=== PATIENT | female | born 1940 | race Caucasian/White ===

== ENCOUNTER 2020-01-02 00:56 | Emergency (ER) | payer MEDICARE ==
[2020-01-02 03:39] VITALS: BP 152/79
== END 2020-01-02 03:40 | disposition left against medical advice (07) ==
LOC: ED 00:56
DX: Z53.21 Procedure and treatment not carried out due to patient leaving prior to being seen by health care provider (principal); I10 Essential (primary) hypertension; R51 Headache
CPT/HCPCS: 99282

== ENCOUNTER 2020-01-07 14:58 | Emergency (ER) | payer MEDICARE ==
[2020-01-07 15:23] VITALS: BP 150/84
--- NOTE | 2020-01-07 15:58 | UC ---
Skin Complaint HPI - HPI Summary HPI Summary: patient has had months long history intermittent erythemic pruritic rash. 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 has been using claritin with little relief, also has tried steroid cream itch is interfering with sleep - History of Current Complaint Chief Complaint: UCRash Time Seen by Provider: 01/07/20 15:43 Stated Complaint: RASH Hx Obtained From: Patient Onset/Duration: Gradual Onset Timing: Constant Pain Intensity: 0 Character: Pruritus, Redness Associated Signs & Symptoms: Positive: Negative Similar Episode/Dx as: drug reaction - Allergy/Home Medications Allergies/Adverse Reactions: Allergies Allergy/AdvReac Type Severity Reaction Status Date / Time codeine Allergy Nausea And Verified 01/07/20 15:23 Vomiting erythromycin base Allergy Nausea And Verified 01/07/20 15:23 Vomiting IV contrast dye Allergy Hives Uncoded 01/07/20 15:24 PMH/Surg Hx/FS Hx/Imm Hx Previously Healthy: Yes Cardiovascular History: Hypertension GI/ History: Gastroesophageal Reflux - Surgical History Surgical History: Yes Surgery Procedure, Year, and Place: hysterectomy. right rotator cuff - Social History Occupation: Retired Lives: With Family Alcohol Use: Occasionally Substance Use Type: None Smoking Status (MU): Never Smoked Tobacco Type: Cigarettes Have You Smoked in the Last Year: No Review of Systems All Other Systems Reviewed And Are Negative: Yes Constitutional: Positive: Negative Skin: Positive: Rash Respiratory: Positive: Negative Cardiovascular: Positive: Negative Musculoskeletal: Positive: Negative Psychological: Positive: Negative Is Patient Immunocompromised?: No Physical Exam Triage Information Reviewed: Yes Appearance: Well-Appearing, No Pain Distress, Well-Nourished Vital Signs: Initial Vital Signs Temp 98.5 F 01/07/20 15:17 Pulse 78 01/07/20 15:17 Resp 12 01/07/20 15:17 BP 150/84 01/07/20 15:17 Pulse Ox 99 01/07/20 15:17 Vital Signs Reviewed: Yes Eyes: Positive: Conjunctiva Clear Respiratory Exam: Normal Respiratory: Positive: Lungs clear. Negative: Wheezing Cardiovascular Exam: Normal Psychological: Positive: Other: - patient seems anxious aboiut rash and itching Skin: Positive: Rashes - erythemic, confluent, macular rash abdomen and flanks Course/Dx - Differential Diagnoses - Skin Complaint Differential Diagnoses: Allergic Reaction, Contact Dermatitis, Drug Rash, Eczema , Urticaria - Diagnoses Provider Diagnosis: Rash Discharge ED - Sign-Out/Discharge Documenting (check all that apply): Patient Departure All imaging exams completed and their final reports reviewed: No Studies - Discharge Plan Condition: Good Disposition: HOME Prescriptions: hydrOXYzine HCL TAB* [Atarax 25 MG TAB*] 25 mg PO TID PRN #15 tab PRN Reason: Itching Patient Education Materials: Acute Rash (ED) Referrals: Lani Byrd MD [Primary Care Provider] - 3 Days (for recheck) Additional Instructions: start hydroxyzine and take as directed for itch (this may make you tired) please follow-up with your primary care and dermatology provider next week - Billing Disposition and Condition Condition: GOOD Disposition: Home
== END 2020-01-07 16:25 | disposition home or self-care (01) ==
LOC: UCEAST 14:58
DX: R21 Rash and other nonspecific skin eruption (principal); I10 Essential (primary) hypertension; Z88.5 Allergy status to narcotic agent; Z88.1 Allergy status to other antibiotic agents; Z91.041 Radiographic dye allergy status
CPT/HCPCS: 99212; G0463